=== PATIENT | female | born 1980 | race Caucasian/White ===

== ENCOUNTER 2025-06-29 12:33 | Emergency (ER) | payer BC ==
[2025-06-29] MEDS: diphenhydrAMINE 50 MG/ML SDV IM ONE (12:51)
[2025-06-29] MEDS: GI Cocktail Oral Solution 30 ML PO ONE (13:19)
[2025-06-29 13:21] LABS: BASOPHILS PERCENT AUTO 0.0 % (0.0-1.0); EOSINOPHILS PERCENT AUTO 0.8 % (1.0-3.0); LYMPHOCYTES PERCENT AUTO 33.2 % (20.5-50.1); MONOCYTES PERCENT AUTO 5.9 % (2-8); NEUTROPHILS PERCENT AUTO 60.1 % (42.2-75.2); PLATELET COUNT,PLT 330 10^3/uL (150-450); RED BLOOD CELL COUNT 4.63 10^6/uL (4.2-5.4); WHITE BLOOD CELL COUNT,WBC 6.1 10^3/uL (5.0-10.0)
[2025-06-29] MEDS: diphenhydrAMINE 50 MG/ML SDV IVPUSH ONE (13:34)
[2025-06-29 13:35] VITALS: BP 133/97; PULSE 76
[2025-06-29 13:43] LABS: INR 0.9 (0.9-1.2)
[2025-06-29 13:51] LABS: A/G RATIO 1.1; ALANINE AMINOTRANSFERASE,ALT 26 U/L (14-59); ASPARTATE AMNIOTRANSFERASE,AST 20 U/L (15-37); BILIRUBIN TOTAL 0.5 mg/dL (0.2-1.0); BLOOD UREA NITROGEN,BUN 13 mg/dL (7-18); CARBON DIOXIDE,CO2 23 mmol/L (21-32); CHLORIDE,CL 102 mmol/L (98-107); CREATININE 0.97 mg/dL (0.55-1.02); EST CRCL DRUG DOSING (CG) 67.98 mL/min; GLUCOSE RANDOM 113 mg/dL (70-99); POTASSIUM,K 3.7 mmol/L (3.5-5.1); PROTEIN TOTAL,TP 7.7 g/dL (6.4-8.2)
[2025-06-29 13:54] LABS: SODIUM,NA 136 mmol/L (136-145)
[2025-06-29 13:55] LABS: ESTIMATED GFR 75 mL/min (>=60)
[2025-06-29] MEDS: [UNRECOGNIZED DRUG - OTHER] IM ONE (14:14)
== END 2025-06-29 14:21 | disposition home or self-care (01) ==
LOC: DL.ED 12:33
DX: T63.441A Toxic effect of venom of bees, accidental (unintentional), initial encounter (principal); Z79.899 Other long term (current) drug therapy
CPT/HCPCS: 36415; 80053; 83735; 84484; 85025; 85610; 86140; 96372; 96374; 99285; A9270; J1200; J3490